=== PATIENT | female | born 1990 | race Caucasian/White ===

== ENCOUNTER 2021-06-14 14:37 | Day surgery (SDC) | payer OTHER ==
[~2021-06-14] VITALS: Ht 167.6 cm; Wt 95.6 kg
[~2021-06-14 14:37] MED LIST: CRUTCH2 XX; IBU600 MG PO; Norco 5-325 Ta1 EACH PO
[2021-06-14] MEDS ORDERED: Aspirin325 MG (15:07)
--- NOTE | 2021-06-14 15:45 | NUR ---
06/14/21 1545 MICHAEL SALTER 1533- DR PRICE AT BEDSIDE. TIME OUT AND SITE CHECK, PT TOLERATED PROCEDURE WELL.
--- NOTE | 2021-06-14 16:02 | NUR ---
06/14/21 1602 Gerardo Weaver PT REPORTED TAKING ASPIRIN ON DAY ON PROCEDURE, PER FRANCHESKA ALEGRIA TO PROCEDE.
--- NOTE | 2021-06-14 17:35 | NUR ---
06/14/21 1735 Isabelle Rayo PATIENT RESTING IN RECLINER. C/O PAIN RATED AT 8/10, GIVEN FENTANYL 25MCG IV. WHEN REASSESSED PATIENT STATES PAIN IS 4/10. PATIENT GIVEN NORCO 5/325MG PO PER POST OP ORDERS. VSS. PATIENT VERY EMOTIONAL, DOESN'T WANT FAMILY BACK AT THIS TIME. WILL CONTINUE TO MONITOR AND MEDICATE NEEDED.
== END 2021-06-14 17:54 | disposition home or self-care (01) ==
LOC: ORSCSDS 14:37
PROVIDERS: Orthopaedic Surgery
PROC: 0QSH04Z Reposition Left Tibia with Internal Fixation Device, Open Approach (ICD-10-PCS; principal; 2021-06-14 15:45)
PROC: 0QSK04Z Reposition Left Fibula with Internal Fixation Device, Open Approach (ICD-10-PCS; principal; 2021-06-14 15:45)
DX: S82.842A Displaced bimalleolar fracture of left lower leg, initial encounter for closed fracture (principal); E66.9 Obesity, unspecified; Z68.34 Body mass index [BMI] 34.0-34.9, adult
CPT/HCPCS: A9270; C1713; C1769; J0171; J0690; J1100; J2250; J2405; J2704; J2795; J3010; J7120